=== PATIENT | male | born 1940 ===

== ENCOUNTER 2021-09-11 10:01 | Outpatient (CLI) | payer MEDICAID ==
--- NOTE | 2021-09-11 12:22 | Cat Scan Report ---
CT ABDOMEN AND PELVIS WITHOUT CONTRAST HISTORY: N40.1 ENLARGED PROSTATE W/ LOWER URINARY TRACT SYMPTOM. COMPARISON: None. TECHNIQUE: CT images of the abdomen and pelvis were obtained without administration of intravenous co ntrast. All CT scans at this location are performed using CT dose reduction for ALARA by means of au tomated exposure control. FINDINGS: Lungs/bones: Lung bases are clear Abdomen/pelvis: Within limits of a noncontrast exam the liver, spleen, adrenal glands, pancreas, gal lbladder and upper GI tract appear normal. Multiple left renal hypodensities suggest cyst. Right pelv ic kidney is identified The prostate is enlarged with prosthetic calcifications. Prostate measures 5.2 x 5.6 cm appendix appe ars normal. Atherosclerotic changes seen throughout the aorta. Degenerative changes seen throughout s [place] IMPRESSION: 1. Prostate is enlarged. Correlate with PSA 2. Multiple left renal cysts. Pelvic right kidney. Mild prominence of the right renal pelvis however no obstructing stone is seen. Signer Name: Erich Malik MD Signed: 09/11/2021 12:18 PM Workstation Name: [id number]
== END 2021-09-11 10:02 | disposition home or self-care (01) ==
LOC: CT 10:01
PROVIDERS: ATTEND Urology
DX: N40.1 Benign prostatic hyperplasia with lower urinary tract symptoms (principal); N28.1 Cyst of kidney, acquired
CPT/HCPCS: 74176